=== PATIENT | male | born 1990 | race Caucasian/White ===

== ENCOUNTER 2017-01-30 21:43 | Emergency (ER) | payer BC, OTHER ==
[2017-01-30 21:55] VITALS: BP 141/80
[2017-01-30] MEDS ORDERED: cefTRIAXone VIAL(*) 250 MG VIAL IM ONE (22:05)
[2017-01-30] MEDS ORDERED: Lidocaine 1% INJ* 10 MG/ML 30 ML SDV INJ ONE (22:05)
[2017-01-30] MEDS ORDERED: Azithromycin TAB* 250 MG PO ONE (22:14)
--- NOTE | 2017-01-30 22:14 | UC ---
UC General HPI - HPI Summary HPI Summary: patient is here to be tested and treated for clyamidia andgonorrhea as recent partner tested positive for one of them. He denies any sumptoms. - History of Current Complaint Chief Complaint: UCGU Stated Complaint: PERSONAL Time Seen by Provider: 01/30/17 22:02 Hx Obtained From: Patient Onset/Duration: Sudden Onset Timing: Constant Onset Severity: Mild Current Severity: Mild - Allergy/Home Medications Allergies/Adverse Reactions: Allergies Allergy/AdvReac Type Severity Reaction Status Date / Time No Known Allergies Allergy Verified 09/07/12 17:04 PMH/Surg Hx/FS Hx/Imm Hx Previously Healthy: Yes Endocrine History Of: Denies: Diabetes Cardiovascular History Of: Denies: Hypertension, Pacemaker/ICD, Congestive Heart Failure Respiratory History Of: Denies: Asthma - Surgical History Surgical History: Yes Surgery Procedure, Year, and Place: LEFT QUAD FACIA REPAIR 08/2012 - Family History Known Family History: Negative: Cardiac Disease, Hypertension - Social History Alcohol Use: Weekly Substance Use Type: None Smoking Status (MU): Never Smoked Tobacco Review of Systems Constitutional: Negative Skin: Negative Eyes: Negative ENT: Negative Respiratory: Negative Cardiovascular: Negative Gastrointestinal: Negative Genitourinary: Negative Motor: Negative Neurovascular: Negative Musculoskeletal: Negative Neurological: Negative Psychological: Negative All Other Systems Reviewed And Are Negative: Yes Physical Exam Triage Information Reviewed: Yes Appearance: Well-Appearing, Well-Nourished, Other: - anxious Vital Signs: Initial Vital Signs Temp 98.5 F 01/30/17 21:52 Pulse 72 01/30/17 21:52 Resp 18 01/30/17 21:52 BP 141/80 01/30/17 21:52 Pulse Ox 99 01/30/17 21:52 Vital Signs Reviewed: Yes Eye Exam: Normal Eyes: Positive: Conjunctiva Clear ENT Exam: Normal ENT: Positive: Normal ENT inspection, Hearing grossly normal, Pharynx normal, TMs normal Dental Exam: Normal Neck exam: Normal Respiratory Exam: Normal Respiratory: Positive: Chest non-tender, Lungs clear, Normal breath sounds Cardiovascular Exam: Normal Cardiovascular: Positive: RRR, No Murmur, Pulses Normal Abdominal Exam: Normal Abdomen Description: Positive: Nontender, No Organomegaly, Soft Bowel Sounds: Positive: Present Musculoskeletal Exam: Normal Musculoskeletal: Positive: Strength Intact, ROM Intact, No Edema Neurological Exam: Normal Neurological: Positive: Alert, Muscle Tone Normal Psychological Exam: Normal Skin Exam: Normal Course/Dx - Course Course Of Treatment: hx obtained, exam performed, meds reviewed, urine gc/cl obtained, treated for GC/CL, - Differential Dx - Multi-Symptom Provider Diagnoses: STD testing Discharge - Discharge Plan Condition: Stable Disposition: HOME Patient Education Materials: Sexually Transmitted Diseases (ED), Safe Sex (ED) Additional Instructions: 1. you have been treated for common STD's. Your results should be available by tuesday. 2. Follow up with any worsening symtpoms.
[2017-01-30] MEDS ORDERED: Lidocaine 1% MPF* 2 ML VIAL ONE (22:16)
== END 2017-01-30 22:42 | disposition home or self-care (01) ==
LOC: UCEAST 21:43
DX: Z11.3 Encounter for screening for infections with a predominantly sexual mode of transmission (principal)
CPT/HCPCS: 87491; 87591; 96372; 99202; A9270-GY; G0463; J0696; J2001